=== PATIENT | male | born 1995 | race Caucasian/White ===

== ENCOUNTER 2017-06-16 18:18 | Emergency (ER) | payer OTHER ==
[2017-06-16] MEDS ORDERED: NA CHLORIDE 0.9% 1,000 ML ONE (18:57)
--- NOTE | 2017-06-16 19:04 | RAD REPORT ---
EXAM DESCRIPTION: CT - Head Brain Wo Cont - 06/16/2017 6:46 pm CLINICAL HISTORY: seizure COMPARISON: 2016 TECHNIQUE: Computed axial tomography of the head was obtained. IV contrast was not requested. All CT scans are performed using dose optimization technique as appropriate and may include automated exposure control or mA/KV adjustment according to patient size. FINDINGS: An intracranial bleed is not seen . The ventricles are normal in caliber. No extra-axial fluid collection is noted. Fluid within the sinuses/ mastoids is not seen. IMPRESSION: No acute intracranial abnormality is seen. If patient's symptoms persist MRI of the bra in would be recommended.
[2017-06-16 19:07] LABS: Absolute Lymphocytes (CBC) 3.2 K/uL (0.7-4.9); Absolute Monocytes 0.7 K/uL (0.1-1.3); Absolute Neutrophil 5.6 K/uL (1.8-8.0); Basophils % 0.9 % (0-1.3); Hematocrit 45.6 % (39.6-49.0); MCH 30.3 pg (27.0-35.0); MCV 91.4 fL (80-100); MPV 8.2 fL (7.6-11.3); Monocytes % 6.7 % (3.3-12.3); RBC Red Blood Cell Count 4.99 M/uL (4.33-5.43)
[2017-06-16 19:11] LABS: Potassium 3.7 mEq/L (3.6-5.0)
[2017-06-16] MEDS ORDERED: HYDROCODONE/APAP 5/325 MG TAB ONE (19:13)
--- NOTE | 2017-06-16 19:46 | EDPHYS ---
Physician Documentation [facility] Name: Olman Cordova Age: 21 yrs Sex: Male : 1995 Arrival Date: 06/16/2017 Time: 18:21 Bed 6 Private MD: ED Physician Jann Neal HPI: 06/16 18:31 This 21 yrs old Male presents to ER via EMS with complaints of Seizure. rn 18:31 The patient presents after having a single isolated seizure, that lasted 1 minute(s). rn Character of seizure(s): Loss of consciousness: it is not known if the patient experienced loss of consciousness, Motor activity: generalized, Incontinence: none, Circulation: the patient did not experience evidence of pulse disturbance. Seizure onset: just prior to arrival. Current symptoms: headache. The patient has experienced similar episodes in the past. Reports hx of seizures since 16, on keppra, hadn't had a seizure in a while so went to taking once a day instead of twice daily, single seizure that lasted less than 1 minute, reports headache currently, has been eating/drinking ok, nothing out of the ordinary today, no pain/trauma.. Historical: - Allergies: 18:23 No Known Allergies; aj - Home Meds: 18:23 Keppra 500 mg oral tab 2 times per day [Active]; aj - PMHx: 18:23 Seizures; aj - PSHx: 18:23 None; aj - Immunization history:: Adult Immunizations up to date. - Social history:: Smoking status: Patient/guardian denies using tobacco. - Family history:: not pertinent. - Hospitalizations: : No recent hospitalization is reported. ROS: 18:31 Constitutional: Negative for fever, chills, and weight loss, Eyes: Negative for injury, rn pain, redness, and discharge, Neck: Negative for injury, pain, and swelling, Cardiovascular: Negative for chest pain, palpitations, and edema, Respiratory: Negative for shortness of breath, cough, wheezing, and pleuritic chest pain, Abdomen/GI: Negative for abdominal pain, diarrhea, and constipation, Back: Negative for injury and pain, MS/Extremity: Negative for injury and deformity, Skin: Negative for injury, rash, and discoloration, Neuro: Negative for weakness, numbness, tingling Exam: 18:31 Constitutional: This is a well developed, well nourished patient who is awake, alert, rn and in no acute distress. Head/Face: Normocephalic, atraumatic. Eyes: Pupils equal round and reactive to light, extra-ocular motions intact. Lids and lashes normal. Conjunctiva and sclera are non-icteric and not injected. Cornea within normal limits. Periorbital areas with no swelling, redness, or edema. ENT: dry MM Neck: Trachea midline, no thyromegaly or masses palpated, and no cervical lymphadenopathy. Supple, full range of motion without nuchal rigidity, or vertebral point tenderness. No Meningismus. Cardiovascular: Regular rate and rhythm with a normal S1 and S2. No gallops, murmurs, or rubs. Normal PMI, no JVD. No pulse deficits. Respiratory: Lungs have equal breath sounds bilaterally, clear to auscultation and percussion. No rales, rhonchi or wheezes noted. No increased work of breathing, no retractions or nasal flaring. Abdomen/GI: Soft, non-tender, with normal bowel sounds. No distension or tympany. No guarding or rebound. No evidence of tenderness throughout. Skin: Warm, dry, no rashes, no lesions, and no evidence of cellulitis. MS/ Extremity: Pulses equal, no cyanosis. Neurovascular intact. Full, normal range of motion. Equal circumference. Neuro: Awake and alert, GCS 15, oriented to person, place, time, and situation. Cranial nerves II-XII grossly intact. Motor strength 5/5 in all extremities. Sensory grossly intact. Vital Signs: 18:24 BP 118 / 70; Pulse 100; Resp 18; Temp 98.4; Pulse Ox 99% on R/A; Weight 63.5 kg; Height aj 5 ft. 5 in. (165.10 cm); Pain 0/10; 19:05 BP 129 / 74 LA Supine (auto/); Pulse 73; Resp 20; Temp 98.7; Pulse Ox 100% on R/A; Pain ar4 2/10; 19:10 BP 110 / 62; Pulse 77; Resp 16; Pulse Ox 100% on R/A; ae1 20:10 BP 108 / 64; Pulse 76; Resp 18; Temp 98.5(O); Pulse Ox 99% ; Pain 0/10; tc3 18:24 Body Mass Index 23.30 (63.50 kg, 165.10 cm) aj [place] Coma Score: 18:24 Eye Response: spontaneous(4). Verbal Response: oriented(5). Motor Response: obeys aj commands(6). Total: 15. MDM: 18:24 Patient medically screened. rn 19:44 Differential diagnosis: seizure. Data reviewed: vital signs, nurses notes, lab test rn result(s), radiologic studies, CT scan, and as a result, I will discharge patient. Counseling: I had a detailed discussion with the patient and/or guardian regarding: the historical points, exam findings, and any diagnostic results supporting the discharge/admit diagnosis, lab results, radiology results, the need for outpatient follow up, to return to the emergency department if symptoms worsen or persist or if there are any questions or concerns that arise at home. Special discussion: I discussed with the patient/guardian in detail that at this point there is no indication for admission to the hospital. It is understood, however, that if the symptoms persist or worsen the patient needs to return immediately for re-evaluation. Based on the history and exam findings, there is no indication for further emergent testing or inpatient evaluation. I discussed with the patient/guardian the need to see the neurologist for further evaluation of the symptoms. ED course: Urged to take medication twice daily as prescribed, normal w/u here, acidotic likely from seizure, will dc home. . 06/16 18:31 Order name: CBC with Diff rn 06/16 18:31 Order name: Basic Metabolic Panel rn 06/16 18:31 Order name: CT Head Brain wo Cont rn 06/16 19:05 Order name: CT; Complete Time: 19:43 EDMS 06/16 19:10 Order name: CBC with Automated Diff; Complete Time: 19:43 EDMS 06/16 19:21 Order name: Basic Metabolic Panel; Complete Time: 19:43 EDMS 06/16 18:31 Order name: IV Start; Complete Time: 18:32 rn 06/16 18:31 Order name: Glucose Level; Complete Time: 18:35 rn Administered Medications: 18:39 Drug: NS 0.9% 1000 ml Route: IV; Rate: 1000 ml; Site: right antecubital; ae1 19:59 Follow up: IV Status: Completed infusion; IV Intake: 1000ml tc3 18:57 Drug: [place] 5 mg-325 mg 1 tabs Route: PO; ae1 19:45 Follow up: Response: No adverse reaction; Pain is decreased tc3 Point of Care Testing: Blood Glucose: 18:35 Blood Glucose: 102 mg/dL; ae1 Ranges: Critical Glucose Levels:Adult <50 mg/dl or >400 mg/dl <40 mg/dl or >180 mg/dl Disposition: 06/16/17 19:45 Discharged to Home. Impression: Epilepsy and recurrent seizures. - Condition is Stable. - Discharge Instructions: Seizure, Adult. - Medication Reconciliation Form, Thank You Letter, Antibiotic Education, Prescription Opioid Use form. - Follow up: Private Physician; When: As needed; Reason: Recheck today's complaints, Re-evaluation by your physician. - Problem is new. - Symptoms have improved. Signatures: Dispatcher [employer] Jihan Newton, RN Jann Capellan MD MD rn Elliott, Andrea, RN RN ae1 Liberty Steve RN RN tc3
--- NOTE | 2017-06-16 19:46 | ER ---
Nurse's Notes [facility] Name: Olman Cordova Age: 21 yrs Sex: Male : 1995 Arrival Date: 06/16/2017 Time: 18:21 Bed 6 Private MD: Diagnosis: Epilepsy and recurrent seizures Presentation: 06/16 18:21 Presenting complaint: EMS states: Patient had witnessed seizure lasting approx 1 min aj prior to EMS arrival. EMS reports patient was post ictal upon arrival. Patient has HX of epilepsy and reports that he is compliant with medications. Patient has not had a seizure for 1 year. Transition of care: patient was not received from another setting of care. Onset of symptoms was June 16, 2017. Care prior to arrival: IV initiated. 18 GA, in the right antecubital area, Glucose check: 124. 18:21 Method Of Arrival: EMS: [facility] aj 18:21 Acuity: JORGE 3 aj Triage Assessment: 18:24 General: Appears in no apparent distress. comfortable, Behavior is calm, cooperative, aj appropriate for age. Pain: Denies pain. Neuro: Level of Consciousness is awake, alert, obeys commands, Oriented to person, place, time, situation, Seizure activity reported prior to arrival. Seizure lasted approximately 1 minutes. Respiratory: Airway is patent Respiratory effort is even, unlabored, Respiratory pattern is regular, symmetrical. GI: Reports nausea. Derm: Skin is intact, is healthy with good turgor, Skin is pink, warm \T\ dry. normal. Historical: - Allergies: 18:23 No Known Allergies; aj - Home Meds: 18:23 Keppra 500 mg oral tab 2 times per day [Active]; aj - PMHx: 18:23 Seizures; aj - PSHx: 18:23 None; aj - Immunization history:: Adult Immunizations up to date. - Social history:: Smoking status: Patient/guardian denies using tobacco. - Family history:: not pertinent. - Hospitalizations: : No recent hospitalization is reported. Screenin:27 Abuse screen: Denies threats or abuse. Nutritional screening: No deficits noted. ae1 Tuberculosis screening: No symptoms or risk factors identified. Fall Risk No fall in past 12 months (0 pts). Secondary diagnosis (15 points) seizures, IV access (20 points). Ambulatory Aid- None/Bed Rest/Nurse Assist (0 pts). Gait- Normal/Bed Rest/Wheelchair (0 pts) Mental Status- Oriented to own ability (0 pts). Assessment: 18:27 General: Appears in no apparent distress. comfortable, slender, Behavior is calm, ae1 cooperative. Pain: Complains of pain in head and back of head Pain currently is 8 out of 10 on a pain scale. Neuro: Level of Consciousness is awake, alert, obeys commands, Oriented to person, place, time, situation. Cardiovascular: Heart tones S1 S2 present Patient's skin is warm and dry. Respiratory: Airway is patent Respiratory effort is even, unlabored, Breath sounds are clear bilaterally. GI: small amount of vomit on chin and front of patient's shirt. Patient currently denies diarrhea, nausea, EMS reports patient vomited upon transfer onto ambulance. : No signs and/or symptoms were reported regarding the genitourinary system. EENT: No signs and/or symptoms were reported regarding the EENT system. Derm: Skin is pink, warm \T\ dry. Musculoskeletal: No signs and/or symptoms reported regarding the musculoskeletal system. 18:40 Reassessment: Patient complaining of headache rating 8/10, provider notified, new ae1 orders received. 19:05 General: Appears in no apparent distress. comfortable, slender, Behavior is calm, ar4 cooperative. Pain: Complains of pain in posterior side of head Pain does not radiate. Pain currently is 2 out of 10 on a pain scale. Quality of pain is described as pressure, throbbing, Alleviated by medications, Aggravated by increased activity, repositioning, Noted to be resistant to movement, Also complains of. Neuro: Level of Consciousness is awake, alert, obeys commands, Oriented to person, place, time, situation, Locomotive Firer/Fireman are equal bilaterally Moves all extremities. Gait is steady, Speech is normal, Facial symmetry appears normal, Pupils are PERRLA. Cardiovascular: Heart tones S1 S2 present Capillary refill < 3 seconds is brisk in bilateral fingers toes Patient's skin is warm and dry. Pulses are all present. Rhythm is sinus rhythm Chest pain is denied. Respiratory: Airway is patent Respiratory effort is even, unlabored, Breath sounds are clear bilaterally. GI: Abdomen is flat, non-distended, Bowel sounds present X 4 quads. Abd is soft and non tender X 4 quads. : No signs and/or symptoms were reported regarding the genitourinary system. EENT: No signs and/or symptoms were reported regarding the EENT system. Derm: Skin is intact, is healthy with good turgor, Skin is dry, Skin is pink, warm \T\ dry. Skin temperature is warm. Musculoskeletal: No signs and/or symptoms reported regarding the musculoskeletal system. Circulation, motion, and sensation intact. 19:11 Reassessment: Report and hand off care to MIRIAM Koenig. ae1 19:43 Reassessment: Patient appears in no apparent distress at this time. Patient and/or tc3 family updated on plan of care and expected duration. Pain level reassessed. Patient is alert, oriented x 3, equal unlabored respirations, skin warm/dry/pink. Patient states feeling better. Patient states symptoms have improved. 20:18 Reassessment: Patient appears in no apparent distress at this time. Patient and/or tc3 family updated on plan of care and expected duration. Pain level reassessed. Patient is alert, oriented x 3, equal unlabored respirations, skin warm/dry/pink. father with pt Patient states feeling better. Patient states symptoms have improved. Vital Signs: 18:24 BP 118 / 70; Pulse 100; Resp 18; Temp 98.4; Pulse Ox 99% on R/A; Weight 63.5 kg; Height aj 5 ft. 5 in. (165.10 cm); Pain 0/10; 19:05 BP 129 / 74 LA Supine (auto/); Pulse 73; Resp 20; Temp 98.7; Pulse Ox 100% on R/A; Pain ar4 2/10; 19:10 BP 110 / 62; Pulse 77; Resp 16; Pulse Ox 100% on R/A; ae1 20:10 BP 108 / 64; Pulse 76; Resp 18; Temp 98.5(O); Pulse Ox 99% ; Pain 0/10; tc3 18:24 Body Mass Index 23.30 (63.50 kg, 165.10 cm) aj [place] Coma Score: 18:24 Eye Response: spontaneous(4). Verbal Response: oriented(5). Motor Response: obeys aj commands(6). Total: 15. ED Course: 18:21 Patient arrived in ED. aj 18:23 Triage completed. aj 18:24 Jann Neal MD is Attending Physician. rn 18:24 Arm band placed on left wrist. Patient placed in an exam room, on a stretcher. aj 18:27 Justice Bro, RN is Primary Nurse. ae1 18:32 Seizure precautions initiated. Pulse ox on. NIBP on. ae1 20:17 IV discontinued, intact, bleeding controlled, No redness/swelling at site. Pressure tc3 dressing applied, DC'd EMS IV to right AC. 20:18 No provider procedures requiring assistance completed. tc3 Administered Medications: 18:39 Drug: NS 0.9% 1000 ml Route: IV; Rate: 1000 ml; Site: right antecubital; ae1 19:59 Follow up: IV Status: Completed infusion; IV Intake: 1000ml tc3 18:57 Drug: [place] 5 mg-325 mg 1 tabs Route: PO; ae1 19:45 Follow up: Response: No adverse reaction; Pain is decreased tc3 Point of Care Testing: Blood Glucose: 18:35 Blood Glucose: 102 mg/dL; ae1 Ranges: Intake: 19:59 IV: 1000ml; Total: 1000ml. tc3 Outcome: 19:45 Discharge ordered by . rn 20:18 Discharged to home ambulatory, with family. tc3 20:18 Condition: improved 20:18 Discharge instructions given to patient, family, Instructed on discharge instructions, follow up and referral plans. Demonstrated understanding of instructions, follow-up care, Prescriptions given X 0 20:24 Patient left the ED. tc3 Signatures: Jihan Thapa RN RN aj Nieto, Roman, MD MD rn Elliott, Andrea, RN RN ae1 Liberty Steve RN RN tc3 Helena Faria ar4 Corrections: (The following items were deleted from the chart) 18:25 18:21 Care prior to arrival: None. aj aj
== END 2017-06-16 20:24 | disposition home or self-care (01) ==
LOC: ER 18:18
DX: G40.802 Other epilepsy, not intractable, without status epilepticus (principal)
CPT/HCPCS: 36415; 70450; 80048; 82962; 85025; 96360; 99284; J7030

== ENCOUNTER 2019-04-18 20:48 | Emergency (ER) | payer OTHER, SELFPAY ==
[2019-04-18] MEDS ORDERED: IBUPROFEN 200 MG TAB PO ONE (21:36)
[2019-04-18] MEDS ORDERED: IBUPROFEN 400 MG TAB ONE (21:37)
--- NOTE | 2019-04-18 22:04 | EDPHYS ---
Physician Documentation [facility] Name: Olman Cordova Age: 23 yrs Sex: Male : 1995 Arrival Date: 04/18/2019 Time: 20:52 Bed 8 Private MD: Crescencio Cortez R ED Physician Abebe Collins HPI: 04/18 21:53 This 23 yrs old Male presents to ER via Ambulatory with complaints of Flu joyce Symptoms. 21:53 The patient presents to the emergency department with nausea, vomiting, that is joyce intermittent. Onset: The symptoms/episode began/occurred. Possible causes: flu. The symptoms are aggravated by nothing. The patient or guardian reports cough, flu symptoms, arthralgias, low-grade fever, myalgias. Onset: The symptoms/episode began/occurred 2 day(s) ago. Severity of symptoms: At their worst the symptoms were mild, moderate, in the emergency department the symptoms are unchanged. Historical: - Allergies: 21:02 No Known Allergies; ca1 - Home Meds: 21:02 Keppra 500 mg Oral tab 2 times per day [Active]; ca1 - PMHx: 21:02 Seizures; ca1 - PSHx: 21:02 None; ca1 - Immunization history:: Adult Immunizations up to date, Flu vaccine is not up to date. - Social history:: Smoking status: Reported history of juuling and/or vaping. - Ebola Screening: : Patient negative for fever greater than or equal to 101.5 degrees Fahrenheit, and additional compatible Ebola Virus Disease symptoms Patient denies exposure to infectious person Patient denies travel to an Ebola-affected area in the 21 days before illness onset No symptoms or risks identified at this time. - Family history:: not pertinent. ROS: 21:53 Constitutional: Negative for fever, chills, and weight loss, Eyes: Negative for injury, joyce pain, redness, and discharge, ENT: Negative for injury, pain, and discharge, Neck: Negative for injury, pain, and swelling, Cardiovascular: Negative for chest pain, palpitations, and edema, Abdomen/GI: Negative for abdominal pain, nausea, vomiting, diarrhea, and constipation, Back: Negative for injury and pain, : Negative for injury, bleeding, discharge, and swelling, MS/Extremity: Negative for injury and deformity, Skin: Negative for injury, rash, and discoloration, Psych: Negative for depression, anxiety, suicide ideation, homicidal ideation, and hallucinations, Allergy/Immunology: Negative for hives, rash, and allergies, Endocrine: Negative for neck swelling, polydipsia, polyuria, polyphagia, and marked weight changes, Hematologic/Lymphatic: Negative for swollen nodes, abnormal bleeding, and unusual bruising. 21:53 Respiratory: Positive for cough. 21:53 Neuro: Positive for headache. Exam: 21:53 Constitutional: This is a well developed, well nourished patient who is awake, alert, joyce and in no acute distress. Head/Face: Normocephalic, atraumatic. Eyes: Pupils equal round and reactive to light, extra-ocular motions intact. Lids and lashes normal. Conjunctiva and sclera are non-icteric and not injected. Cornea within normal limits. Periorbital areas with no swelling, redness, or edema. ENT: Nares patent. No nasal discharge, no septal abnormalities noted. Tympanic membranes are normal and external auditory canals are clear. Oropharynx with no redness, swelling, or masses, exudates, or evidence of obstruction, uvula midline. Mucous membranes moist. Neck: Trachea midline, no thyromegaly or masses palpated, and no cervical lymphadenopathy. Supple, full range of motion without nuchal rigidity, or vertebral point tenderness. No Meningismus. Chest/axilla: Normal chest wall appearance and motion. Nontender with no deformity. No lesions are appreciated. Cardiovascular: Regular rate and rhythm with a normal S1 and S2. No gallops, murmurs, or rubs. Normal PMI, no JVD. No pulse deficits. Abdomen/GI: Soft, non-tender, with normal bowel sounds. No distension or tympany. No guarding or rebound. No evidence of tenderness throughout. Back: No spinal tenderness. No costovertebral tenderness. Full range of motion. Male : Normal genitalia with no discharge or lesions. Skin: Warm, dry with normal turgor. Normal color with no rashes, no lesions, and no evidence of cellulitis. MS/ Extremity: Pulses equal, no cyanosis. Neurovascular intact. Full, normal range of motion. Psych: Awake, alert, with orientation to person, place and time. Behavior, mood, and affect are within normal limits. 21:53 Neck: ROM/movement: is normal, no acute changes, Meningeal signs: are not present, Kernig's sign is negative, Brudzinski's sign is negative. 21:53 Respiratory: the patient does not display signs of respiratory distress, Respirations: normal, Breath sounds: are clear throughout. 21:53 Abdomen/GI: Exam negative for acute changes, Inspection: abdomen appears normal, Bowel sounds: normal, Palpation: abdomen is soft and non-tender, Liver: no appreciated palpable abnormalities, Hernia: not appreciated. Vital Signs: 21:02 BP 123 / 80; Pulse 86; Resp 17 S; Temp 99.2(O); Pulse Ox 100% on R/A; Weight 68.04 kg ca1 (R); Height 5 ft. 5 in. (165.10 cm) (R); Pain 10/10; 21:02 Body Mass Index 24.96 (68.04 kg, 165.10 cm) ca1 MDM: 20:54 Patient medically screened. [facility] 22:01 Data reviewed: vital signs, nurses notes, lab test result(s), Flu: positive. [facility] 04/18 20:55 Order name: Flu; Complete Time: 21:52 [facility] Administered Medications: 21:37 Drug: Ibuprofen 600 mg Route: PO; ea 22:00 Follow up: Response: No adverse reaction ea 22:07 Drug: Tamiflu 75 mg Route: PO; ea 22:15 Follow up: Response: No adverse reaction ea 22:08 Drug: Zofran 4 mg Route: PO; ea 22:15 Follow up: Response: No adverse reaction ea 22:08 Not Given (Other Intervention Used; pt took 1 gram prior to arrival): Tylenol 650 mg PO ea once Disposition: 04/18/19 22:03 Discharged to Home. Impression: Influenza due to identified novel influenza A virus, Headache, Vomiting. - Condition is Stable. - Discharge Instructions: Fever, Adult, General Headache Without Cause, Influenza, Adult, Nausea and Vomiting, Adult, Nausea and Vomiting, Adult, [id number], General Headache Without Cause, [id number]. - Prescriptions for Zofran 4 mg Oral Tablet - take 1 tablet by ORAL route every 12 hours As needed; 14 tablet. Tamiflu 75 mg Oral Capsule - take 1 tablet by ORAL route every 12 hours for 5 days; 10 tablet. - Work release form, Medication Reconciliation Form, Thank You Letter, Antibiotic Education, Prescription Opioid Use form. - Follow up: Crescencio Cortez MD; When: 2 - 3 days; Reason: Recheck today's complaints, Continuance of care, Re-evaluation by your physician. - Problem is new. - Symptoms have improved. Signatures: Dispatcher [employer] EDMS Abebe Collins MD MD cha Antunez, Elena, RN RN ea Acob, Cheryl, RN RN ca1 Corrections: (The following items were deleted from the chart) 22:14 22:03 04/18/2019 22:03 Discharged to Home. Impression: Influenza due to identified ea novel influenza A virus; Headache; Vomiting. Condition is Stable. Forms are Medication Reconciliation Form, Thank You Letter, Antibiotic Education, Prescription Opioid Use. Follow up: Crescencio Cortez; When: 2 - 3 days; Reason: Recheck today's complaints, Continuance of care, Re-evaluation by your physician. Problem is new. Symptoms have improved. joyce
--- NOTE | 2019-04-18 22:04 | ER ---
Nurse's Notes [facility] Name: Olman Cordova Age: 23 yrs Sex: Male : 1995 Arrival Date: 04/18/2019 Time: 20:52 Bed 8 Private MD: Crescencio Cortez R Diagnosis: Influenza due to identified novel influenza A virus;Headache;Vomiting Presentation: 04/18 21:00 Presenting complaint: Patient states: Cough and congestion x 1 day. C/O headache and ca1 sore throat, N/V/F. Htemp 101F. 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 Transition of care: patient was not received from another setting of care. Onset of symptoms was April 18, 2019. Risk Assessment: Do you want to hurt yourself or someone else? Patient reports no desire to harm self or others. Initial Sepsis Screen: Does the patient meet any 2 criteria? No. Patient's initial sepsis screen is negative. Does the patient have a suspected source of infection? No. Patient's initial sepsis screen is negative. Care prior to arrival: Medication(s) given: Tylenol. 21:00 Method Of Arrival: Ambulatory ca1 21:00 Acuity: JORGE 4 ca1 Historical: - Allergies: 21:02 No Known Allergies; ca1 - Home Meds: 21:02 Keppra 500 mg Oral tab 2 times per day [Active]; ca1 - PMHx: 21:02 Seizures; ca1 - PSHx: 21:02 None; ca1 - Immunization history:: Adult Immunizations up to date, Flu vaccine is not up to date. - Social history:: Smoking status: Reported history of juuling and/or vaping. - Ebola Screening: : Patient negative for fever greater than or equal to 101.5 degrees Fahrenheit, and additional compatible Ebola Virus Disease symptoms Patient denies exposure to infectious person Patient denies travel to an Ebola-affected area in the 21 days before illness onset No symptoms or risks identified at this time. - Family history:: not pertinent. Screenin:20 Abuse screen: Denies threats or abuse. Nutritional screening: No deficits noted. ea Tuberculosis screening: No symptoms or risk factors identified. Fall Risk None identified. Assessment: 21:20 General: Appears uncomfortable, Behavior is appropriate for age. Pain: Complains of ea pain in sore throat. Neuro: Level of Consciousness is awake, alert, obeys commands, Oriented to person, place, time. Cardiovascular: Patient's skin is warm and dry. Respiratory: Airway is patent Respiratory effort is even, unlabored, Respiratory pattern is regular, symmetrical. Derm: Skin is pink, warm \T\ dry. 22:12 Reassessment: Patient and/or family updated on plan of care and expected duration. Pain ea level reassessed. Patient is alert, oriented x 3, equal unlabored respirations, skin warm/dry/pink. Discharge instruction given to patient, verbalized the understanding of instruction, Pt left ED ambulatory accompanied by significant other. Vital Signs: 21:02 BP 123 / 80; Pulse 86; Resp 17 S; Temp 99.2(O); Pulse Ox 100% on R/A; Weight 68.04 kg ca1 (R); Height 5 ft. 5 in. (165.10 cm) (R); Pain 10/10; 21:02 Body Mass Index 24.96 (68.04 kg, 165.10 cm) ca1 ED Course: 20:52 Patient arrived in ED. es 20:52 Crescencio Cortez MD is Private Physician. es 20:54 Abebe Collins MD is Attending Physician. joyce 21:02 Triage completed. ca1 21:02 Arm band placed on right wrist. ca1 21:03 Patient has correct armband on for positive identification. Bed in low position. Call ca1 light in reach. Side rails up X 1. Pulse ox on. NIBP on. 21:07 Deborah Galvan, MIRIAM is Primary Nurse. ea 22:02 Crescencio Cortez MD is Referral Physician. joyce 22:12 No provider procedures requiring assistance completed. Patient did not have IV access ea during this emergency room visit. Administered Medications: 21:37 Drug: Ibuprofen 600 mg Route: PO; ea 22:00 Follow up: Response: No adverse reaction ea 22:07 Drug: Tamiflu 75 mg Route: PO; ea 22:15 Follow up: Response: No adverse reaction ea 22:08 Drug: Zofran 4 mg Route: PO; ea 22:15 Follow up: Response: No adverse reaction ea 22:08 Not Given (Other Intervention Used; pt took 1 gram prior to arrival): Tylenol 650 mg PO ea once Outcome: 22:03 Discharge ordered by . joyce 22:12 Discharged to home ambulatory, with family. ea 22:12 Condition: stable 22:12 Discharge instructions given to patient, Instructed on discharge instructions, Demonstrated understanding of instructions, follow-up care, Prescriptions given X 2. 22:14 Patient left the ED. ea Signatures: Abebe Collins MD MD cha Salyer, Edna es Antunez, Elena, RN RN Katty Puente RN RN ca1
[2019-04-18] MEDS ORDERED: ONDANSETRON 4 MG (ODT) TAB ONE (22:07)
[2019-04-18] MEDS ORDERED: OSELTAMIVIR 75 MG CAP ONE (22:07)
[2019-04-18] MEDS ORDERED: ACETAMINOPHEN 325 MG TABLET ONE (22:07)
[2019-04-19 02:41] VITALS: BP 123/80; TEMP 99.2; O2SAT 100
== END 2019-04-18 22:14 | disposition home or self-care (01) ==
LOC: ER 20:48
DX: J10.1 Influenza due to other identified influenza virus with other respiratory manifestations (principal); R51 Headache; G40.909 Epilepsy, unspecified, not intractable, without status epilepticus
CPT/HCPCS: 87804; 99283